=== PATIENT | female | born 1965 | race Hispanic/Latino ===

== ENCOUNTER 2018-06-05 17:14 | Emergency (ER) | payer MEDICAID ==
[2018-06-05] MEDS ORDERED: TETANUS/DIPHTHERIA TOXOID [ADULT] 0.5 ML VIAL IM ONE (18:23)
== END 2018-06-05 19:17 | disposition home or self-care (01) ==
LOC: EDH 17:14
DX: S81.852A Open bite, left lower leg, initial encounter (principal); I10 Essential (primary) hypertension; E78.5 Hyperlipidemia, unspecified; E07.9 Disorder of thyroid, unspecified; W54.0XXA Bitten by dog, initial encounter; Y93.89 Activity, other specified; Y92.098 Other place in other non-institutional residence as the place of occurrence of the external cause; Y99.8 Other external cause status
CPT/HCPCS: 90471; 90714

== ENCOUNTER 2020-12-02 20:46 | Emergency (ER) | payer MEDICAID ==
[2020-12-02] MEDS ORDERED: KETOROLAC TROMETHAMINE 30MG/ML ONE (22:20)
[2020-12-02] MEDS ORDERED: ACETAMINOPHEN-CODEINE 300/30MG TAB ONE (22:20)
== END 2020-12-02 22:39 | disposition home or self-care (01) ==
LOC: EDH 20:46
DX: S90.02XA Contusion of left ankle, initial encounter (principal); I10 Essential (primary) hypertension; E78.5 Hyperlipidemia, unspecified; E07.9 Disorder of thyroid, unspecified; Z88.1 Allergy status to other antibiotic agents; Z90.710 Acquired absence of both cervix and uterus; Z98.890 Other specified postprocedural states; X50.1XXA Overexertion from prolonged static or awkward postures, initial encounter; Y93.H2 Activity, gardening and landscaping; Y92.096 Garden or yard of other non-institutional residence as the place of occurrence of the external cause; Y99.8 Other external cause status
CPT/HCPCS: 73600; 96372; 99283; J1885

== ENCOUNTER 2023-12-05 11:59 | Emergency (ER) | payer MEDICAID, OTHER ==
[~2023-12-05] VITALS: Ht 149.9 cm; Wt 59.9 kg
[2023-12-05 12:42] LABS: BASOPHILS # (AUTO) 0.04 K/uL (0.00-0.20); BASOPHILS % (AUTO) 0.6 % (0.0-5.0); EOSINOPHILS # (AUTO) 0.03 K/uL (0.00-0.70); EOSINOPHILS % (AUTO) 0.5 % (0.0-8.0); HEMATOCRIT 37.2 % (36-48); IMMATURE GRANULOCYTE ABSOLUTE 0.03 K/uL (0-1); LYMPHOCYTES # (AUTO) 1.1 K/uL (1.0-4.8); LYMPHOCYTES % (AUTO) 15.8 % (21.0-51.0); MEAN CORPUSCULAR HEMOGLOBIN 31.5 pg (27.0-33.0); MEAN CORPUSCULAR HGB CONC 34.7 g/dL (32.0-36.0); MEAN CORPUSCULAR VOLUME 90.7 fL (79-99); MONOCYTES # (AUTO) 0.5 K/uL (0.1-1.0); MONOCYTES % (AUTO) 7.1 % (3.0-13.0); NEUTROPHILS % (AUTO) 75.5 % (40.0-77.0); PLATELET COUNT (AUTO) 224 K/uL (130-400); RED CELL DISTRIBUTION WIDTH 12.7 % (11.0-15.5); WHITE BLOOD COUNT (AUTO) 6.6 K/uL (4.8-10.8)
[2023-12-05 12:53] LABS: CREATININE 0.8 mg/dL (0.5-1.0); POTASSIUM 3.9 mmol/L (3.5-5.1)
[2023-12-05] MEDS ORDERED: IOHEXOL-350 75 ML VIAL IV ONE (13:30)
[2023-12-05] MEDS ORDERED: IOHEXOL 350 MG/ML 100ML INFUS..BTL IV ONE (13:36)
[2023-12-05 13:39] LABS: APPEARANCE,URINE CLEAR (CLEAR); BILIRUBIN,URINE NEGATIVE (NEGATIVE); COLOR,URINE LIGHT-YELLOW (YELLOW); GLUCOSE, URINE (UA) NEGATIVE (NEGATIVE); KETONES,URINE NEGATIVE (NEGATIVE); LEUKOCYTE ESTERASE ,URINE NEGATIVE Leu/uL (NEGATIVE); MUCUS,URINE RARE LPF (None Seen); NITRATE,URINE NEGATIVE (NEGATIVE); PH,URINE 6.5 (5.0-8.0); PROTEIN,URINE NEGATIVE (NEGATIVE); UROBILINOGEN,URINE 0.2 mg/dL (0.2-1.0); WBC,URINE 0-1 /HPF (0-1)
[2023-12-05] MEDS ORDERED: NAPR375T6 PO (15:04)
[2023-12-05 15:08] VITALS: BP 158/94; PULSE 85; RESP 18; O2SAT 98
== END 2023-12-05 15:11 | disposition home or self-care (01) ==
LOC: EDH 11:59
DX: M94.0 Chondrocostal junction syndrome [Tietze] (principal); E03.9 Hypothyroidism, unspecified; E78.00 Pure hypercholesterolemia, unspecified; I10 Essential (primary) hypertension; Z90.49 Acquired absence of other specified parts of digestive tract
CPT/HCPCS: 99285; 71260; 80048; 85025; 81001; 36415; 74177; Q9967 ×2

== ENCOUNTER 2024-10-22 23:20 | Emergency (ER) | payer OTHER ==
[~2024-10-22] VITALS: Ht 149.9 cm; Wt 60.3 kg
[~2024-10-22 23:20] MED LIST: NAPR-1505 PO
[2024-10-22 23:41] VITALS: TEMP 97.3
--- NOTE | 2024-10-22 23:41 | ERN ---
ED Note History of Present Illness Stated Complaint: TOOK EXTRA B/P MEDICATION BY M[facility] Chief Complaint: Other Problems Time Seen by MD: 23:22 Time Seen by Midlevel: 23:22 Dictation: The patient is a 59-year-old female with a history of hypertension, hyperlipidemia who presents to the emergency department for evaluation after she accidentally took an extra dose of losartan 50 mg. Patient reports that she took the 1st dose at 3:00 p.m. and had forgotten she took it and repeated the dose again a 9:00 p.m.. Patient currently denies any symptoms. Allergies: Coded Allergies: No Known Drug Allergies (Unverified Allergy, Unknown, 12/05/23) Home Meds Active Scripts Naproxen (Naproxen) 375 Mg Tablet., 375 MG PO BID for 10 Days, #20 TAB Prov:WALDO FINN MD 12/05/23 Past Medical History Past Medical History: High Cholesterol, Hypertension, Hypothyroid Surgical History: Hysterectomy, Cholecystectomy, RN Note Reviewed/Agreed w/PFSH: Yes Review of System Dictation Constitutional: Negative for fever,chills, and weight loss Eyes: Negative for injury, pain,redness, and discharge ENT: Negative for injury,pain or swelling Cardiovascular: Negative for chest pain, palpitations, and edema Respiratory: Negative for shortness of breath, cough, and wheezing, Abdomen/GI: Negative for abdominal pain, nausea, vomiting, diarrhea, and constipation Back: Negative for injury and pain : Negative for injury, bleeding and discharge MS/Extremity: Negative for injury and deformity Skin: Negative for rash, and discoloration Neuro: Negative for headache, weakness, numbness, tingling, and seizure Psych: Negative for suicide ideation, homicidal ideation, and hallucinations Initial Vital Sign VS Vital Signs Date Time Temp Pulse Resp B/P (MAP) Pulse Ox O2 Delivery O2 Flow Rate FiO2 10/22/24 23:23 97.0 89 20 184/93 99 Room Air 10/22/24 23:41 0 21 Physical Exam Dictation Vital Signs reviewed General Appearance: Alert, oriented x 3, no acute distress, well developed, nourished. Head and Face: non-traumatic. Eyes: PERRL, pink conjunctivas, eyelid no trauma, anterior chamber with arcus senilis. Ears: Pinnas intact and no signs of trauma or erythema ear canals clear and no discharge TM no erythema Nose: No discharge, no bleeding. Oropharynx: Mouth normal, tongue pink. pharynx clear,no erythema, tonsils no exudates, no abscesses noted, mucous membrane moist Neck: Supple, non-tender, no thyromegaly, no masses, no JVD, no bruits Breast:Deferred Chest:No tenderness, no crepitus, no paradoxical movement, no retractions Lungs:Clear, well-ventilated, symmetric, no rales, no wheezing, no rhonchi, no stridor, good breath sounds bilaterally Heart: Regular rate, regular rhythm, no murmur, no gallops Vascular: no peripheral edema, Abdomen: Soft, positive bowel sounds, nondistended, no guarding, nontender, no rebound, no masses no hepatomegaly, no splenomegaly, no Rasmussen's sign, no hernias. Rectal: Deferred Genital: Deferred Neurological: Normal speech, motor function intact, sensory function intact Musculoskeletal: Neck nontender, full range of motion, back nontender, full range of motion, Extremities: nontender, full range of motion Skin: Color pink, dry, no turgor, no rash, no lacerations, no abrasions, no contusions. Lymphatic: Deferred Results (Laboratory/Radiology) Labs Reviewed?: Yes ED Course ED Course Vital Signs Date Time Temp Pulse Resp B/P (MAP) Pulse Ox O2 Delivery O2 Flow Rate FiO2 10/22/24 23:41 97.3 70 16 119/95 100 Room Air* 0 21 10/22/24 23:23 97.0 89 20 184/93 99 Room Air Medical Decision Making MDM The patient is a 59-year-old female with a history of hypertension, hyperlipidemia who presents to the emergency department for evaluation after she accidentally took an extra dose of losartan 50 mg. Patient reports that she took the 1st dose at 3:00 p.m. and had forgotten she took it and repeated the dose again a 9:00 p.m.. Patient currently denies any symptoms. Patient was monitor for about an hour in ER. No symptoms reported. Stable vital signs. Patient no acute distress will be discharged follow up with primary doctor. Differential diagnosis: Anxiety, hypotension, Need for hospitalization: Patient does not meet criteria for hospitalization. There are no social concerns with this patient. DX & DISP Disposition: Discharge Departure Impression: Primary Impression: Accidental medication error Condition: Stable Additional Instructions: Please follow up with your primary doctor in 1-2 days. If symptoms worsen please return to ER. FOLLOW-UP WITH PRIMARY CARE PROVIDER IN 1 TO 2 DAYS. TAKE MEDICATIONS DIRECTED HERE IN THE EMERGENCY ROOM. OKAY TO CONTINUE HOME MEDICATIONS UNLESS OTHERWISE DISCUSSED DURING YOUR VISIT IN THE EMERGENCY ROOM TODAY. RETURN TO Y OUR NEAREST EMERGENCY ROOM IF SYMPTOMS WORSEN OR IF THERE IS NO IMPROVEMENT. CALL 911 IF YOU NEED IMMEDIATE ASSISTANCE. TAKE TYLENOL OR MOTRIN [id number] NEEDED AND IF NO CONTRAINDICATIONS ARE PRESENT. INCREASE ORAL HYDRATION. A WOUND CULTURE OR URINE CULTURE WAS ORDERED HERE IN THE EMERGENCY ROOM DEPARTMENT PLEASE FOLLOW-UP WITH PRIMARY CARE PROVIDER AND ADVISE THEM TO GET REPEAT PORTS FROM OUR FACILITY. IF YOU HAD ANY LINDA WRAP/SPLINTS THAT WERE APPLIED HERE, PLEASE DO NOT REMOVE THEM UNTIL YOU SEE YOUR PRIMARY CARE OR SPECIALTY. Referrals: VAN SANTOYO MD (PCP) Time of Disposition: 00:18 I have reviewed the case, and I agree with, Diagnosis and Plan PORFIRIO VASQUEZ [facility] Oct 22, 2024 23:41
[2024-10-23 00:31] VITALS: BP 156/72; PULSE 73; RESP 16; O2SAT 100
== END 2024-10-23 00:31 | disposition home or self-care (01) ==
LOC: EDH 23:20
DX: T46.5X1A Poisoning by other antihypertensive drugs, accidental (unintentional), initial encounter (principal); E03.9 Hypothyroidism, unspecified; E78.00 Pure hypercholesterolemia, unspecified; I10 Essential (primary) hypertension; Z90.49 Acquired absence of other specified parts of digestive tract; Z90.710 Acquired absence of both cervix and uterus; Y92.89 Other specified places as the place of occurrence of the external cause
CPT/HCPCS: 99282